=== PATIENT | male | born 1950 | race Caucasian/White ===

== ENCOUNTER 2016-08-08 07:23 | Day surgery (SDC) | payer BC, OTHER ==
[~2016-08-08 07:23] MED LIST: CRESTOR10 MG PO; DOXYCYCLINE100 MG PO; HYDROCHLOROTHIA25 MG PO; LEVOTHYROXINE100 MCG PO; LOSARTAN POTASS50 MG PO; METFORMIN HCL500 MG PO; NEXIUM40 M1 PO; VITAMIN B121000 CR PO
--- NOTE | 2016-08-08 08:40 | NUR ---
PRE OP INSTRUCTIONS GIVEN AND SAFETY ISSUES DISCUSSED PT AND SPOUSE HAD QUESTIONS ANSWERED PT CONFIRMED PROCEDURE PT SIGNED CONSENT PT VISITING WITH SPOUSE
[2016-08-08] MEDS ORDERED: PERCOCET1 TA1 PO (11:20)
--- NOTE | 2016-08-08 11:21 | Provider's Discharge Care Plan ---
Problem, Goal, Plan Problem List 1. S/P INCISIONAL HERNIA AND UMBILICAL HERNIA REPAIR Goals: Improve function, Therapeutic intervention Instructions: Follow up as directed, Take meds as directed, abdominal binder 06/01
--- NOTE | 2016-08-08 12:38 | NUR ---
REC'D FROM OR; SPONT RESP AWAKE AND TALKING ABOUT HIS JAIL FROM PUD.
--- NOTE | 2016-08-08 13:07 | NUR ---
COMFORTABLE. ABD BINDER ON.
--- NOTE | 2016-08-08 13:11 | OPERATIVE REPORT ---
DATE OF SURGERY: SURGEON: Rebel Hanson III, MD FRONT DESK CLERK: None. PREOPERATIVE DIAGNOSIS: 1. Umbilical hernia and midline incisional hernia POSTOPERATIVE DIAGNOSIS: 1. Umbilical hernia and midline incisional hernia PROCEDURE PERFORMED: 1. Repair of umbilical hernia and midline incisional hernia ANESTHESIA: LMA local, 1% Xylocaine with epinephrine, 0.5% Marcaine with epinephrine. ESTIMATED BLOOD LOSS: Minimal. FLUIDS: 100 mL of lactated Ringers. PATHOLOGY SPECIMEN: Umbilical hernia sac. INDICATIONS: A 66-year-old male status post robotic surgery for prostate cancer was noted to have an umbilical bulge on a recent CT. On physical examination he was noted to have not only an umbilical hernia, but in the midline through a previous trocar site, an incisional hernia. Both were scheduled for repair at the same time. SURGICAL FINDINGS: The patient was noted to have an umbilical hernia and a midline incisional hernia. DESCRIPTION OF PROCEDURE: The patient was brought to the operating room and placed in the dorsal supine position where he underwent LMA by anesthesia. After proper anesthesia had taken effect, the patient's abdomen was prepped and draped using Betadine and draped in sterile fashion. The umbilical hernia and the midline incisional hernia having been previously identified in the preop holding area once again identified. These sites were infiltrated using local anesthetic. Our attention was then turned to the umbilicus where an infraumbilical curvilinear incision made, carried down through skin and subcutaneous tissue. The umbilical hernia was circumferentially isolated using a combination of blunt dissection and electrocautery. It was then transected from the undersurface of the overlying umbilicus and traced down to the fascia. The base of the hernia sac was transected using electrocautery and handed off the field. The contained omentum was placed back in the abdominal cavity and the fascial defect was closed transversely using [id number] 0-Surgidac interrupted [id number]-dm-qoyta suture. The wound was closed in layers using 3-0 Polysorb interrupted suture and the skin approximated using a 4 -0 subdermal Polysorb, Steri-Strips, sterile pressure occlusive dressing placed over the site. Our attention was then turned to the midline incisional hernia through its previous trocar site. This site was infiltrated using local anesthetic. An elliptical incision made to excise the previous scar, carried down through skin and subcutaneous tissue. The hernia sac was from the surrounding subcutaneous tissue using electrocautery dissection and traced down to the fascial margins. The hernia sac was transected. The omentum was allowed to retract through the fascial defect back into the abdomen. The fascial defect was closed transversely using [id number] 0 Surgidac interrupted suture. The wound was closed in layers using 3-0 Polysorb and the skin approximated using running 4-0 subdermal Polysorb, Steri-Strips, sterile pressure occlusive dressing placed over the site. The patient was placed in an abdominal binder, the LMA removed. He was transferred to the recovery room in stable condition. No intraoperative or anesthetic complications.
--- NOTE | 2016-08-08 13:11 | OPERATIVE REPORT ---
DATE OF SURGERY: SURGEON: Rebel Hanson III, MD STEAM PLANT OPERATOR: None. PREOPERATIVE DIAGNOSIS: 1. Umbilical hernia and midline incisional hernia POSTOPERATIVE DIAGNOSIS: 1. Umbilical hernia and midline incisional hernia PROCEDURE PERFORMED: 1. Repair of umbilical hernia and midline incisional hernia ANESTHESIA: LMA local, 1% Xylocaine with epinephrine, 0.5% Marcaine with epinephrine. ESTIMATED BLOOD LOSS: Minimal. FLUIDS: 100 mL of lactated Ringers. PATHOLOGY SPECIMEN: Umbilical hernia sac. INDICATIONS: A 66-year-old male status post robotic surgery for prostate cancer was noted to have an umbilical bulge on a recent CT. On physical examination he was noted to have not only an umbilical hernia, but in the midline through a previous trocar site, an incisional hernia. Both were scheduled for repair at the same time. SURGICAL FINDINGS: The patient was noted to have an umbilical hernia and a midline incisional hernia. DESCRIPTION OF PROCEDURE: The patient was brought to the operating room and placed in the dorsal supine position where he underwent LMA by anesthesia. After proper anesthesia had taken effect, the patient's abdomen was prepped and draped using Betadine and draped in sterile fashion. The umbilical hernia and the midline incisional hernia having been previously identified in the preop holding area once again identified. These sites were infiltrated using local anesthetic. Our attention was then turned to the umbilicus where an infraumbilical curvilinear incision made, carried down through skin and subcutaneous tissue. The umbilical hernia was circumferentially isolated using a combination of blunt dissection and electrocautery. It was then transected from the undersurface of the overlying umbilicus and traced down to the fascia. The base of the hernia sac was transected using electrocautery and handed off the field. The contained omentum was placed back in the abdominal cavity and the fascial defect was closed transversely using [id number] 0-Surgidac interrupted frhuga-cw-cyqif suture. The wound was closed in layers using 3-0 Polysorb interrupted suture and the skin approximated using a 4 -0 subdermal Polysorb, Steri-Strips, sterile pressure occlusive dressing placed over the site. Our attention was then turned to the midline incisional hernia through its previous trocar site. This site was infiltrated using local anesthetic. An elliptical incision made to excise the previous scar, carried down through skin and subcutaneous tissue. The hernia sac was from the surrounding subcutaneous tissue using electrocautery dissection and traced down to the fascial margins. The hernia sac was transected. The omentum was allowed to retract through the fascial defect back into the abdomen. The fascial defect was closed transversely using [id number] 0 Surgidac interrupted suture. The wound was closed in layers using 3-0 Polysorb and the skin approximated using running 4-0 subdermal Polysorb, Steri-Strips, sterile pressure occlusive dressing placed over the site. The patient was placed in an abdominal binder, the LMA removed. He was transferred to the recovery room in stable condition. No intraoperative or anesthetic complications.
--- NOTE | 2016-08-08 13:44 | NUR ---
PT RETURNED FROM PACU AT [address] PT INSTRUCTED ON USE OF INCENTIVE SPIROMETERY PT DEMONSTRATED USE OF INCENTIVE SPITOMETERY STATED SMALL AMOUNT OF DISCOMFORT PAIN MED OFFERED PT REFUSED
[2016-08-08 14:14] VITALS: BP 132/77
--- NOTE | 2016-08-08 14:47 | NUR ---
PT UP TO BR VOIDED SPONTANOUSLY ASKING TO GO HOME REVIEWED DISCHARGE INSTRUCTIONS VERBAL ANE WRITTEN PT AND SPOUSE EXPRESSED UNDERSTANDING
--- NOTE | 2016-08-08 14:56 | NUR ---
PT DISCHARGED PER WC ACCOMPANIED BY SPOUSE
== END 2016-08-08 14:56 | disposition home or self-care (01) ==
LOC: OR SRH 07:23 → SCU SRH 07:25 → OR SRH 09:30
PROVIDERS: Specialist
PROC: 0WQF0ZZ Repair Abdominal Wall, Open Approach (ICD-10-PCS; principal; 2016-08-08 09:30)
DX: K43.2 Incisional hernia without obstruction or gangrene (principal); K42.9 Umbilical hernia without obstruction or gangrene; E11.9 Type 2 diabetes mellitus without complications; Z79.84 Long term (current) use of oral hypoglycemic drugs; I10 Essential (primary) hypertension
CPT/HCPCS: 29240; 50002; 60001; 70002; 80212; 80575; 80866; 83774; 84038; 84046; 84515